=== PATIENT | male | born 1975 | race Caucasian/White ===

== ENCOUNTER 2021-08-20 16:22 | Emergency (ER) | payer BC, SELFPAY ==
[2021-08-20 18:02] VITALS: BP 96/70; PULSE 80; RESP 19; TEMP 36.5; O2SAT 98; BMI 24.9
--- NOTE | 2021-08-20 19:19 | ED.WOUNDLAC ---
HPI - Wound/Laceration General Chief Complaint: Wound/Laceration Stated Complaint: laceration/wound on L index finger Source: patient Mode of arrival: ambulatory Limitations: no limitations History of Present Illness HPI narrative: 46-year-old male presents to ED for left index laceration that occurred last night around 21:00. Patient states he was cooking any cut himself by accident with a knife. Patient states no active bleeding, numbness, tingling, swelling, or redness since incident. Patient not up-to-date with tetanus. Related Data Allergies Allergy/AdvReac Type Severity Reaction Status Date / Time No Known Allergies Allergy Verified 08/20/21 18:16 Review of Systems Review of Systems: left index laceration Yes all other systems are reviewed and are negative [facility] Social History Social History Advance Directives: No Advance Directives Information Provided: No Physical Exam Vital Signs: Vital Signs: Last Vital Signs Temp 97.7 F 08/20/21 18:02 Pulse 80 08/20/21 18:02 Resp 19 08/20/21 18:02 BP 96/70 08/20/21 18:02 Pulse Ox 98 08/20/21 18:02 BMI result Body Mass Index 24.9 Const: General: cooperative, healthy appearing, comfortable, no acute distress and well developed Orientation/consciousness: oriented to time and patient oriented x3 HEENT: Head: Yes normal to inspection, Yes No palpable skull fracture present, Yes normocephalic, Yes atraumatic and No abrasion Eyes: General: appearance normal, both eyes and all related structures Neck: Neck: Yes normal visual inspection, Yes full ROM, Yes no lymphadenopathy, Yes no meningeal signs, Yes trachea midline, No anterior neck swelling and No tender Chest: Chest palpation & inspection: normal inspection of the chest and normal palpation of entire chest wall Resp: Effort & Inspection: normal respiratory effort and able to speak in complete sentences Auscultation: clear to auscultation bilaterally Cardio: Jugular venous distension: no JVD Heart sounds: S1 normal heart sound present and S2 normal heart sound present GI: Inspection: Yes normal to inspection and No abdominal wall ecchymosis Palpation (GI): Soft to palpation, not firm, nontender and no guarding : General: No CVA tenderness and Yes no CVA tenderness Back/Spine/Pelvis: Back: no CVA tenderness, No CVA tenderness and No back tenderness Skin: Trauma: laceration (left index finger) Neuro: General: oriented to time, patient oriented x3, gait normal and no meningeal signs Extrem: General: Yes normal to inspection and Yes full ROM Hand/finger images: 1. Very superficial laceration that does not require laceration repair. Skin is haines and on laceration area. Rest of fingers pink and healthy. Capillary refill is intact. Patient has complete range of motion of finger. Extremity motor/neuro/vascular exam intact. Psych: Appearance: grossly normal, well kempt and not disheveled Course Course Course Narrative: Tdap ordered. No laceration needed. Reevaluation(s) Reevaluation #1: Wound clean sterile strep strip placed. Time: 19:24 MDM - Wound/Laceration MDM Narrative Medical decision making narrative: Abrasions Discharge Plan Discharge Clinical Impression: Laceration Patient Disposition: Home, Self-Care Instructions: Laceration Without Closure (ED) Additional Instructions: Return to the ED immediately for any swelling, redness, pus discharge, foul odor, fever, numbness, tingling, paralysis of extremities, or any other concerning symptoms. Please follow-up with your primary care provider Interventions: ED Discharge Assessment Last Done: 08/20/21 19:49 Discharge Date/Time: 08/20/21 19:50 Print Language: [place]
[2021-08-20] MEDS: Diphth,Pertus(ACell),Tet Adult 0.5 ML SYRINGE IM (19:41)
== END 2021-08-20 19:50 | disposition home or self-care (01) ==
PROVIDERS: Emergency Provider Emergency Medicine
DX: S61.211A Laceration without foreign body of left index finger without damage to nail, initial encounter (principal); S60.411A Abrasion of left index finger, initial encounter; W26.0XXA Contact with knife, initial encounter; Y93.9 Activity, unspecified; Y92.009 Unspecified place in unspecified non-institutional (private) residence as the place of occurrence of the external cause; Y99.9 Unspecified external cause status
CPT/HCPCS: 12001; 90471; 90715; 99283; 99284